=== PATIENT | male | born 1985 | race Caucasian/White ===

== ENCOUNTER 2021-08-18 11:30 | Emergency (ER) | payer SELFPAY ==
[~2021-08-18] VITALS: Ht 165.1 cm; Wt 55.9 kg
[2021-08-18] MEDS ORDERED: BENZONATATE100 MG PO (14:35)
== END 2021-08-18 15:43 | disposition home or self-care (01) ==
LOC: ED 11:30
DX: B34.9 Viral infection, unspecified (principal); Z20.822 Contact with and (suspected) exposure to COVID-19
CPT/HCPCS: 71045; 99283-25; J7030; U0003

== ENCOUNTER 2021-08-23 15:14 | Emergency (ER) | payer SELFPAY ==
[~2021-08-23] VITALS: Ht 165.1 cm; Wt 55.8 kg
[~2021-08-23 15:14] MED LIST: BENZONATATE100 MG PO
--- OUTSIDE RECORDS SUMMARY | 2021-08-23 15:22 | XMS ---
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 Merari has no Care Guidelines for this patient. [facility] (12 MO.) [facility] NOTE: Visits indicate total known visits. ED/C VISIT TRACKING (12 MO.) [facility]21 15[facility] COMPLAINT: - ABNORMAL LAB RESULTS 08/18/2021 11:32 [facility] TYPE: Emergency COMPLAINT: - COLD SYMPTOMS, PAIN IN HEAD,CHEST CONGESTED DIAGNOSES: - Viral infection, unspecified - COUGH, UNSPECIFIED INPATIENT VISIT TRACKING (12 MO.) No inpatient visits to display in this time frame [email or web address]
[2021-08-23] MEDS ORDERED: PROMETH-CODEIN 65 ML PO (18:07)
== END 2021-08-23 18:37 | disposition home or self-care (01) ==
LOC: ED 15:14
DX: L27.0 Generalized skin eruption due to drugs and medicaments taken internally (principal); T48.3X5A Adverse effect of antitussives, initial encounter; B34.9 Viral infection, unspecified; R74.8 Abnormal levels of other serum enzymes; Z20.822 Contact with and (suspected) exposure to COVID-19
CPT/HCPCS: 74177; 80053; 82553; 82977; 83605; 83690; 84484; 85025; 85610; 99284-25; C9803; Q9967; U0003